=== PATIENT | female | born 2000 | race African-American/Black ===

== ENCOUNTER 2020-12-10 12:55 | Emergency (ER) | payer OTHER ==
[~2020-12-10] VITALS: Ht 167.6 cm; Wt 69.9 kg
[2020-12-10] MEDS ORDERED: CYCLOBENZAPRINE 5MG TABLET PO ONE (13:40)
[2020-12-10] MEDS ORDERED: KETOROLAC 30 MG/ML 1ML VIAL IV ONE (13:40)
--- NOTE | 2020-12-10 14:03 | REP ---
INDICATION: back pain on squating. COMPARISON: None. TECHNIQUE: Five views of the lumbar spine are provided. FINDINGS: Lumbar vertebral body heights are preserved alignment is normal. Disc spaces are maintained. There is no evidence of spondylolysis or spondylolisthesis. No fracture or collapse is seen. Pedicles and posterior elements are intact. Psoas margins are symmetric. Sacrum and SI joints are unremarkable. Visualized bowel gas pattern is normal. IMPRESSION: Unremarkable lumbar spine radiographs. <Electronically signed by Ivan Truong > 12/10/20 [id number]
--- NOTE | 2020-12-10 14:04 | REP ---
INDICATION: back pain on squating. COMPARISON: None. TECHNIQUE: Three views of the sacrum and coccyx are provided. FINDINGS: SI joints and symphysis pubis are intact. No sacral or coccygeal fracture or displacement is seen. The presacral soft tissues are not widened. Sacral alar lines are intact. IMPRESSION: No abnormality noted. <Electronically signed by Ivan Truong > 12/10/20 [id number]
[2020-12-10] MEDS ORDERED: KETOROLAC 30 MG/ML 1ML VIAL IM ONE (14:15)
[2020-12-10] MEDS ORDERED: CYCL5TAB PO (14:49)
[2020-12-10 14:54] VITALS: BP 138/88
== END 2020-12-10 15:00 | disposition home or self-care (01) ==
LOC: M ED 12:55
DX: S39.012A Strain of muscle, fascia and tendon of lower back, initial encounter (principal); X50.0XXA Overexertion from strenuous movement or load, initial encounter; Y92.009 Unspecified place in unspecified non-institutional (private) residence as the place of occurrence of the external cause; Y93.89 Activity, other specified; Y99.9 Unspecified external cause status; Z88.0 Allergy status to penicillin
CPT/HCPCS: 72110; 72220; 96372; 99283; J1885